=== PATIENT | female | born 1965 | race Two or more races ===

== ENCOUNTER 2018-01-04 14:21 | Emergency (ER) | payer MEDICAID ==
--- NOTE | 2018-01-04 15:11 | ER Document Report ---
ED Medical Screen (RME) - General Chief Complaint: Vaginal Pain Stated Complaint: VAGINAL PAIN/PRESSURE Time Seen by Provider: 01/04/18 15:07 Notes: 60 years old female presents today with sharp vulvovaginal pain since last night. She had on and off pain for several months but this is different which is sharp. It is not associated with any discharges, denies any dysuria frequency urgency. Denies any constipation. Denies any fever chills. Denies any nausea vomiting. Denies any abdominal pain TRAVEL OUTSIDE OF THE [place] IN LAST 30 DAYS: No - Related Data Allergies/Adverse Reactions: cephalexin [From KeMicronotes] Allergy (Verified 01/04/18 14:26) Past Medical History - Social History Chew tobacco use (# tins/day): No Frequency of alcohol use: None Drug Abuse: None Endocrine Medical History: Reports: Hx Diabetes Mellitus Type 2 Renal/ Medical History: Denies: Hx Peritoneal Dialysis Past Surgical History: Reports: Hx Appendectomy, Hx Section - x4 Physical Exam - Vital signs Vitals: Temp Pulse Resp BP Pulse Ox 98.6 F 78 18 167/58 H 95 01/04/18 14:30 01/04/18 14:30 01/04/18 14:30 01/04/18 14:30 01/04/18 14:30 Course - Vital Signs Vital signs: Temp Pulse Resp BP Pulse Ox 98.6 F 78 18 167/58 H 95 01/04/18 14:30 01/04/18 14:30 01/04/18 14:30 01/04/18 14:30 01/04/18 14:30
[2018-01-04 15:50] LABS: APPEARANCE,URINE SLIGHTLY-CLOUDY; BILIRUBIN,URINE NEGATIVE (NEGATIVE); COLOR,URINE STRAW; GLUCOSE, URINE >=500 mg/dL (NEGATIVE); KETONES,URINE NEGATIVE (NEGATIVE); LEUKOCYTE ESTERASE,URINE LARGE (NEGATIVE); NITRITE,URINE NEGATIVE (NEGATIVE); PROTEIN,URINE NEGATIVE (NEGATIVE); UROBILINOGEN,URINE NEGATIVE mg/dL (<2.0)
--- NOTE | 2018-01-04 16:48 | ER Document Report ---
ED GI/ - General Chief Complaint: Vaginal Pain Stated Complaint: VAGINAL PAIN/PRESSURE Time Seen by Provider: 01/04/18 15:07 Mode of Arrival: Ambulatory Information source: Patient Notes: Patient is a 52-year-old female who presents with chief complaint of vaginal pressure. Patient reports that this is usually what happens when she has a urinary tract infection. Patient denies having any dysuria. Denies any abnormal vaginal discharge and denies any vaginal pain. Patient denies any fever or back pain. TRAVEL OUTSIDE OF THE [place] IN LAST 30 DAYS: No - Related Data Allergies/Adverse Reactions: cephalexin [From Keflex] Allergy (Verified 01/04/18 14:26) Past Medical History - General Information source: Patient - Social History Smoking Status: Current Every Day Smoker Chew tobacco use (# tins/day): No Frequency of alcohol use: None Drug Abuse: None Family History: Reviewed & Not Pertinent Patient has suicidal ideation: No Patient has homicidal ideation: No Endocrine Medical History: Reports: Hx Diabetes Mellitus Type 2 Renal/ Medical History: Denies: Hx Peritoneal Dialysis Past Surgical History: Reports: Hx Appendectomy, Hx Section - x4 Review of Systems - Review of Systems Female Genitourinary: Other - Vaginal pressure Physical Exam - Vital signs Vitals: Temp Pulse Resp BP Pulse Ox 98.6 F 78 18 167/58 H 95 01/04/18 14:30 01/04/18 14:30 01/04/18 14:30 01/04/18 14:30 01/04/18 14:30 - Notes Notes: PHYSICAL EXAMINATION: GENERAL: Well-appearing, well-nourished and in no acute distress. HEAD: Atraumatic, normocephalic. EYES: Pupils equal round extraocular movements intact, conjunctiva are normal. ENT: Nares patent NECK: Normal range of motion LUNGS: No respiratory distress Musculoskeletal: Normal range of motion NEUROLOGICAL: Normal speech, normal gait. PSYCH: Normal mood, normal affect. SKIN: Warm, Dry, normal turgor, no rashes or lesions noted. Course - Re-evaluation Re-evalutation: Patient's physical examination is unremarkable, abdomen is soft, nontender no guarding no rebound noted.Urinalysis with large leukocyte Estrace. Patient was placed on antibiotics, urine will be sent for culture. Patient discharged home in stable condition. - Vital Signs Vital signs: Temp Pulse Resp BP Pulse Ox 98.2 F 66 20 147/76 H 97 01/04/18 16:52 01/04/18 16:52 01/04/18 16:52 01/04/18 16:52 01/04/18 16:52 - Laboratory Laboratory results interpreted by me: 01/04/18 15:27 Urine Glucose (UA) >=500 H Ur Leukocyte Esterase LARGE H Discharge - Discharge Clinical Impression: Urinary tract infection Qualifiers: Urinary tract infection type: site unspecified Hematuria presence: without hematuria Qualified Code(s): N39.0 - Urinary tract infection, site not specified Condition: Stable Disposition: HOME, SELF-CARE Additional Instructions: URINARY TRACT INFECTION: Your evaluation indicates that you have a urinary tract infection. This is due to germs growing in the bladder. This is a common problem. This infection usually responds quickly to antibiotics. Your antibiotic should be taken exactly as prescribed. Drink plenty of fluids -- three to four quarts a day. Occasionally, a bladder anesthetic will be prescribed to help stop the feeling of urgency until the antibiotic has a chance to clear the infection. This may cause your urine to be dark orange. Certain urine infections require a culture. If the doctor obtained a culture, the results will be back in two days. You should call to see if a change in treatment is needed. A repeat urinalysis after you finish treatment is often recommended. The physician will let you know if further testing is required. Call the doctor if you develop fever, chills, flank pain, inability to urinate, or blood in the urine. ANTIBIOTIC THERAPY: You have been given an antibiotic prescription. It's important that you take all the medication, unless instructed otherwise by your physician. Failure to complete the entire course can result in relapse of your condition. Common side effects of antibiotics include nausea, intestinal cramping, or diarrhea. Women may develop vaginal yeast infections, and babies can get yeast (thrush) in the mouth following the use of antibiotics. Contact your physician if you develop significant side effects from this medication. Allergy to this antibiotic can result in hives, wheezing, faintness, or itching. If symptoms of allergy occur, stop the medication and call the doctor. TRIMETHOPRIM-SULFA: You have been given a prescription for trimethoprim-sulfa (TMS, Septra, Bactrim). This is a combination antibiotic of the sulfa class, often used for urinary tract infections, middle ear infections, bronchitis, shigella intestinal infection, and Pneumocystis pneumonia. TMS is usually well-tolerated. Occasional side effects include nausea and decreased appetite. Septra is not recommended for infants less than two months of age. Do not take this medication if you have experienced severe side effects or allergy to sulfa medicine. You should stop this medicine at once and contact your physician if you develop any rash, joint pain, shortness of breath, bruising, or jaundice ( yellow color in the skin), or if you develop any other new or unusual symptoms. FOLLOW-UP CARE: If you have been referred to a physician for follow-up care, call the physician s office for an appointment as you were instructed or within the next two days. If you experience worsening or a significant change in your symptoms, notify the physician immediately or return to the Emergency Department at any time for re-evaluation. Take ibuprofen 600 mg every 6 hours for the pain. Take the antibiotic as directed, complete the entire course even if you are feeling better. We will send your urine down for culture, we will call you if there is any abnormality.* Prescriptions: Sulfamethoxazole/Trimethoprim [Bactrim Ds Tablet] 1 tab PO BID #14 tablet Forms: Return to Work
[2018-01-04 16:56] VITALS: BP 147/76
== END 2018-01-04 16:55 | disposition home or self-care (01) ==
LOC: ER 14:21
DX: N39.0 Urinary tract infection, site not specified (principal); R10.2 Pelvic and perineal pain; F17.200 Nicotine dependence, unspecified, uncomplicated; E11.9 Type 2 diabetes mellitus without complications
CPT/HCPCS: 81001; 87086; 99283

== ENCOUNTER 2018-05-23 19:46 | Emergency (ER) | payer SELFPAY ==
[2018-05-23] MEDS ORDERED: CLINDAMYCIN 600 MG/D5W RTU 600 MG/50 ML RTUPB IV ONE (20:35)
--- NOTE | 2018-05-23 20:40 | ER Document Report ---
ED Medical Screen (RME) - General Chief Complaint: Toothache Stated Complaint: FACIAL SWELLING Time Seen by Provider: 05/23/18 20:25 Mode of Arrival: Ambulatory Information source: Patient Notes: 53-year-old female presents the ED for complaint of swelling to her left lower jaw that is actually better today than yesterday but it is still swollen and painful. She states she called for the dentist and has an appointment tomorrow but told her that she needed to come to the emergency room to get antibiotics tonight. She states she also has pain in her lower abdomen worse on the right than on the left but has it on both sides. She states last time she had the same pain she was diagnosed with gallstones. She was told to follow-up with the GI doctor but never followed up. She states that she has a lot of indigestion and upset stomach at night when she eats and is been getting worse over the last several days. She states she is no longer has menstrual periods but is still sexually active. So I have ordered blood urine self swabs and abdominal ultrasound at this time. I have ordered clindamycin IV as I do not want to give her p.o. meds until she has had her workup for her abdominal pain. Patient states she smokes a pack a day and drinks on weekends. I have greeted and performed a rapid initial assessment of this patient. A comprehensive ED assessment and evaluation of the patient, analysis of test results and completion of medical decision making process will be conducted by an additional ED providers. TRAVEL OUTSIDE OF THE [place] IN LAST 30 DAYS: No - Related Data Allergies/Adverse Reactions: cephalexin [From Keflex] Allergy (Verified 01/04/18 14:26) Past Medical History Endocrine Medical History: Reports: Hx Diabetes Mellitus Type 2 Renal/ Medical History: Denies: Hx Peritoneal Dialysis Past Surgical History: Reports: Hx Appendectomy, Hx Section - x4 Physical Exam - Vital signs Vitals: Temp Pulse Resp BP Pulse Ox 98.8 F 95 16 169/73 H 96 05/23/18 19:59 05/23/18 19:59 05/23/18 19:59 05/23/18 19:59 05/23/18 19:59 Course - Vital Signs Vital signs: Temp Pulse Resp BP Pulse Ox 98.8 F 95 16 169/73 H 96 05/23/18 19:59 05/23/18 19:59 05/23/18 19:59 05/23/18 19:59 05/23/18 19:59
[2018-05-23] MEDS ORDERED: KETOROLAC TROMETHAMINE INJ/PF 30 MG/1 ML SDV IV ONE (21:00)
[2018-05-23 21:03] LABS: ABSOLUTE BASOPHILS # (AUTO) 0.2 10^3/uL (0.0-0.2); ABSOLUTE EOSINOPHILS # (AUTO) 0.1 10^3/uL (0.0-0.6); ABSOLUTE LYMPHOCYTES (AUTO) 2.9 10^3/uL (0.5-4.7); ABSOLUTE MONOCYTES (AUTO) 0.9 10^3/uL (0.1-1.4); ABSOLUTE NEUT (AUTO) 9.2 10^3/uL (1.7-8.2); BASOPHILS % (AUTO) 1.3 % (0-2); EOSINOPHILS % (AUTO) 0.9 % (0-6); HEMATOCRIT 47.5 % (36.0-47.0); LYMPHOCYTES % (AUTO) 21.9 % (13-45); MEAN CORPUSCULAR HGB CONC 33.6 g/dL (32.0-36.0); MEAN CORPUSCULAR VOLUME 92 fl (80-97); MONOCYTES % (AUTO) 6.6 % (3-13); PLATELET COUNT 263 10^3/uL (150-450); RED BLOOD COUNT 5.15 10^6/uL (3.72-5.28); RED CELL DISTRIBUTION WIDTH 13.5 % (11.5-14.0); SEGMENTED NEUTROPHILS % (AUTO) 69.3 % (42-78); TOTAL CELLS COUNTED % (AUTO) 100 %; WHITE BLOOD COUNT 13.2 10^3/uL (4.0-10.5)
[2018-05-23 21:07] LABS: BACTERIA (WET MOUNT) 4+ BACTERIA SEEN; T.VAGINALIS (WET MOUNT) TRICHOMONAS SEEN; WBCS (WET MOUNT) 4+ WBCS SEEN; YEAST (WET MOUNT) NO YEAST SEEN
[2018-05-23 21:15] LABS: APPEARANCE,URINE SLIGHTLY-CLOUDY; BILIRUBIN,URINE NEGATIVE (NEGATIVE); COLOR,URINE STRAW; GLUCOSE, URINE >=500 mg/dL (NEGATIVE); KETONES,URINE NEGATIVE (NEGATIVE); LEUKOCYTE ESTERASE,URINE MODERATE (NEGATIVE); NITRITE,URINE NEGATIVE (NEGATIVE); PROTEIN,URINE NEGATIVE (NEGATIVE); URINE SPECIFIC GRAVITY 1.031; UROBILINOGEN,URINE NEGATIVE mg/dL (<2.0)
[2018-05-23 21:24] LABS: ALANINE AMINOTRANSFERASE 27 U/L (9-52); ALBUMIN 3.9 g/dL (3.5-5.0); ALKALINE PHOSPHATASE 176 U/L (38-126); ANION GAP 8 (5-19); ASPARTATE AMINO TRANSFERASE 28 U/L (14-36); BILIRUBIN,DIRECT 0.4 mg/dL (0.0-0.4); BILIRUBIN,TOTAL 0.6 mg/dL (0.2-1.3); BLOOD UREA NITROGEN 20 mg/dL (7-20); CALCIUM 8.9 mg/dL (8.4-10.2); CARBON DIOXIDE 25 mmol/L (22-30); CHLORIDE 100 mmol/L (98-107); LIPASE 73.7 U/L (23-300); SODIUM 133.1 mmol/L (137-145); TOTAL PROTEIN 7.4 g/dL (6.3-8.2)
[2018-05-23 21:35] LABS: GLUCOSE 578 mg/dL (75-110)
--- NOTE | 2018-05-23 22:29 | RADIOLOGY REPORT (SQ) ---
EXAM DESCRIPTION: U/S ABDOMEN LTD W/DOPPLER CLINICAL HISTORY: 53 years Female; hx gallstone with same symptoms TECHNIQUE: Right upper quadrant ultrasound was performed. COMPARISON: None. FINDINGS: Pancreas: Visualized portions are unremarkable. Aorta: 2.4 cm. Liver: 20.2 cm long, with somewhat echogenic parenchyma. No ductal distention. Portal venous flow is hepatopedal, normal. Gallbladder: Multiple shadowing calculi. Negative Mosquera sign. Wall is 3 mm. Common bile duct: 3 mm. Right kidney: 11.9 cm long. No definite hydronephrosis. There is a cystic area in the lower pole 10 mm, likely parapelvic cyst. IMPRESSION: 1. Cholelithiasis. No sonographic evidence for acute cholecystitis. 2. Hepatomegaly with hepatic steatosis. 3. No biliary ductal distention.
[2018-05-23 22:31] LABS: CHLAM PCR NOT DETECTED (NOT DETECT); GON PCR NOT DETECTED (NOT DETECT)
--- NOTE | 2018-05-23 22:34 | RADIOLOGY REPORT (SQ) ---
EXAM DESCRIPTION: US PELVIS COMPLETED DATE/TME: 05/23/2018 20:41 CLINICAL HISTORY: 53 years, Female, pelvic pain COMPARISON: None. TECHNIQUE: Transverse and longitudinal transabdominal sonographic images of the pelvis LIMITATIONS: None. FINDINGS: The uterus measures 7.4 x 5.0 x 4.4 cm. The myometrium is homogenous. The endometrium measures 6.2 mm in thickness. The right ovary measures 2 x 1 x 1 cm, the left 2 x 2 x 2 cm. No adnexal cyst or mass. Normal flow to each ovary. No free fluid IMPRESSION: Endometrium measures 6.2 mm in thickness, considered mildly thickened in a postmenopausal patient. Otherwise unremarkable exam copyright 2010 [employer]- All Rights Reserved
[2018-05-23] MEDS ORDERED: INSULIN REG, HUMAN 100 UNIT/ML 3 ML VIAL (PYX) IV ONE (23:04)
[2018-05-23] MEDS: NORMAL SALINE 1000 ML 1,000 ML IV PRN (23:29)
[2018-05-23] MEDS ORDERED: METRONIDAZOLE 500 MG TABLET PO ONE (23:53)
--- NOTE | 2018-05-23 23:59 | ER Document Report ---
Addendum entered and electronically signed by SABINA FARMER PA-C 05/24/18 02:07: Physical Exam - Vital signs Vitals: Temp Pulse Resp BP Pulse Ox 98.8 F 95 16 169/73 H 96 05/23/18 19:59 05/23/18 19:59 05/23/18 19:59 05/23/18 19:59 05/23/18 19:59 - Notes Notes: Genitourinary exam chaperoned by Darby SAGASTUME. External genitalia normal. Speculum exam reveals copious greenish yellow vaginal discharge. There is no cervical motion tenderness. No adnexal masses or tenderness appreciated. Original Note: ED General - General Chief Complaint: Toothache Stated Complaint: FACIAL SWELLING Time Seen by Provider: 05/23/18 20:25 Mode of Arrival: Ambulatory Information source: Patient TRAVEL OUTSIDE OF THE [place] IN LAST 30 DAYS: No - HPI Patient complains to provider of: Left lower jaw dental abscess, pelvic pain Onset: Other - Dental abscess during the past week, pelvic pain and pelvic discomfort for weeks to months Onset/Duration: Gradual Quality of pain: Burning, Cramping Severity: Severe Pain Level: 4 Associated symptoms: denies: Chills, Fever Exacerbated by: Denies Relieved by: Denies Similar symptoms previously: No Recently seen / treated by doctor: No Notes: 53-year-old female coming in today for treatment of a left lower jaw swelling secondary to bad teeth. She called the dentist today and they told her to come here to get started on some strong antibiotics. While she was here she wanted us to evaluate her lower abdominal pain she has had intermittently for the past several weeks to months. - Related Data Allergies/Adverse Reactions: cephalexin [From Keflex] Allergy (Verified 01/04/18 14:26) Past Medical History - General Information source: Patient - Social History Smoking Status: Current Every Day Smoker Frequency of alcohol use: Social Drug Abuse: None Family History: Reviewed & Not Pertinent Patient has suicidal ideation: No Patient has homicidal ideation: No Endocrine Medical History: Reports: Hx Diabetes Mellitus Type 2 Renal/ Medical History: Denies: Hx Peritoneal Dialysis Past Surgical History: Reports: Hx Appendectomy, Hx Section - x4 Review of Systems - Review of Systems Notes: Constitutional: No fevers. No chills. EENT: No eye redness. No eye pain. No ear pain. No sore throat. Positive for dental pain and facial swelling Cardiovascular: No chest pain. No palpitations. Respiratory: No cough. No shortness of breath. No respiratory distress. Gastrointestinal: No abdominal pain. No nausea, vomiting, or diarrhea. Genitourinary: Atraumatic. No lesions. No pain. No discharge. Positive for pelvic pain Musculoskeletal: Atraumatic. No swelling. No deformities. Skin: No rash or lesions. Lymphatic: No swollen lymph nodes. Neurologic: No headache. No syncope. Psychiatric: No suicidal or homicidal ideation. Physical Exam - Vital signs Vitals: Temp Pulse Resp BP Pulse Ox 98.8 F 95 16 169/73 H 96 05/23/18 19:59 05/23/18 19:59 05/23/18 19:59 05/23/18 19:59 05/23/18 19:59 - Notes Notes: General: Well-developed, well-nourished. In no acute distress. Non-toxic appearing. Cardiac: Well-perfused. Regular rate and rhythm. No murmurs, rubs, or gallops. Pulmonary: No respiratory distress. No cyanosis. Bilateral lung fiels are clear to auscultation. Abdominal: Non-distended. Non-rigid. Bowels sounds are present in all four quadrants. No guarding or rebound. HEENT: Head is atraumatic. Conjunctivae not reddened. No tearing. PERRL. EOMI. Orbits atraumatic. No periorbital swelling or erythema. Oropharynx is without erythema, swelling, or exudates. Neck: Supple. No adenopathy. No meningismus. Dermatologic: Warm with good turgor. No rash. Atraumatic. Chest: Atraumatic. No chest wall tenderness to palpation. Musculoskeletal: Moves all extremities well. No range of motion deficits. no muscular or joint tenderness. No paraspinal muscle tenderness. no midline spinal tenderness or step-off. Genitourinary: Examination deferred Neurologic: No gross neurologic deficits. Psychiatric: Normal mood. Course - Re-evaluation Re-evalutation: 05/23/18 23:59 Patient has a history of type 2 diabetes but is apparently been hoping and praying that it would stay controlled despite having a bad diet and not taking any medications. There is no signs of any ketoacidosis on her lab work. Patient also comes in with a slightly low sodium and a positive trichomonas test. Her chlamydia and gonorrhea tests were negative. I do want to do a pelvic exam to make sure she did not have any PID. Sh we will give her e does not have an appendix secondary to appendectomy. Her pelvic ultrasound does not show any signs of torsion. Her gallbladder ultrasound showed cholelithiasis without cholecystitis. I am going to go ahead and treat her trichomoniasis with Flagyl tonight. She is getting 2 L of normal saline and 10 units of regular insulin hoping to get her blood sugar down. When she goes home she will be treated with Metformin 500 twice daily we will give her [facility] as follow-up. She has a severe amount of cervical motion tenderness we will consider adding some treatment for PID as well. 05/24/18 01:25 At last check glucose was down to 278. Patient's pelvic exam did not reveal any cervical motion tenderness and therefore patient was not to be treated for pelvic inflammatory disease. Trichomonas is addressed today with 2 g of p.o. Flagyl. We will start the patient on Metformin 500 mg twice daily and refer her to [facility] for that. I will give her prescription for the clindamycin for her to and she can follow-up with the appropriate dentist for that. We will give her some smoking education as this is definitely not helping her situation. - Vital Signs Vital signs: Temp Pulse Resp BP Pulse Ox 98.8 F 95 16 169/73 H 96 05/23/18 19:59 05/23/18 19:59 05/23/18 19:59 05/23/18 19:59 05/23/18 19:59 - Laboratory Result Diagrams: 05/23/18 20:40 05/23/18 20:40 Laboratory results interpreted by me: 05/23/18 05/23/18 05/23/18 20:40 20:40 20:40 WBC 13.2 H Hgb 16.0 H Hct 47.5 H Absolute Neutrophils 9.2 H Sodium 133.1 L Est GFR ( Amer) 59 L Est GFR (Non-Af Amer) 49 L Glucose 578 H* POC Glucose Alkaline Phosphatase 176 H Urine Glucose (UA) >=500 H Ur Leukocyte Esterase MODERATE H 05/24/18 00:58 WBC Hgb Hct Absolute Neutrophils Sodium Est GFR ( Amer) Est GFR (Non-Af Amer) Glucose POC Glucose 278 H Alkaline Phosphatase Urine Glucose (UA) Ur Leukocyte Esterase Discharge - Discharge Clinical Impression: Dental abscess, Hyperglycemia, Hyponatremia, Trichomoniasis, Pelvic pain, Elevated blood pressure reading Condition: Good Instructions: [facility], Clindamycin ([facility]), Toothache ([facility]), Abscess ([facility]) Additional Instructions: Trichomonas Infection Trichomoniasis is infection of the vagina or male genital tract with Trichomonas vaginalis. It can be asymptomatic or cause urethritis, vaginitis, or occasionally cystitis, epididymitis, or prostatitis. Diagnosis is by microscopic examination of vaginal or prostatic secretions or by urethral culture. Patients and sex partners are treated with metronidazole. T. vaginalis is a flagellated, sexually transmitted protozoan that more often infects women (about 20% of women of reproductive age) than men. Infection may be asymptomatic in either sex, but asymptomatic is the rule for men. In men, protozoa may persist for long periods in the tract without causing symptoms; thus, protozoa may be transmitted unwittingly to sex partners. Trichomoniasis may account for up to 5% of nongonococcal, nonchlamydial urethritis in men in some areas. Co-infection with gonorrhea and other sexually transmitted diseases (STDs) is common. In women, symptoms range from none to copious, yellow-green, frothy vaginal discharge with soreness of the vulva and perineum, dyspareunia, and dysuria. Asymptomatic infection may become symptomatic at any time as the vulva and perineum become inflamed and edema develops in the labia. The vaginal carpio and surface of the cervix may have punctate, red "strawberry" spots. Urethritis and possibly cystitis may also occur. Men are usually asymptomatic; however, sometimes urethritis results in a discharge that may be transient, frothy, or purulent or that causes dysuria and frequency, usually early in the morning. Often, urethritis is mild and causes only minimal urethral irritation and occasional moisture at the urethral meatus, under the foreskin, or both. Epididymitis and prostatitis are rare complications. Trichomoniasis is suspected in women with vaginitis, in men with urethritis, and in their sex partners. Suspicion is high if symptoms persist after patients have been evaluated and treated for other infections such as gonorrhea and chlamydial, mycoplasmal, and ureaplasmal infections. In women, diagnosis is based on clinical criteria and in-office testing. The saline wet mount is examined microscopically as soon as possible to detect trichomonads.In men, microscopy of urine is insensitive, although occasionally organisms are visible in a first-voided morning specimen or a centrifuged specimen. Cultures of urine and urethral swabs are more sensitive. As with diagnosis of any STD, patients with trichomoniasis should be tested to exclude other common STDs such as gonorrhea and chlamydial infection. Metronidazole or tinidazole 2 g po in a single dose cures up to 95% of women if sex partners are treated simultaneously. Effectiveness of single-dose regimens in men is not as clear, so treatment is typically with metronidazole or tinidazole 500 mg bid for 5 to 7 days. Sex partners should be screened and treated for trichomoniasis and other STDs. If poor adherence to follow-up is likely, treatment can be initiated in sex partners of patients with documented trichomoniasis without confirming the diagnosis in the partner. Diabetes You have an abnormally high blood sugar, suspicious for diabetes. Not all high blood sugar requires long-term treatment. High blood sugar can be due to medications, , or the stress of illness. (These cases are "borderline diabetes.") If the doctor feels your high blood sugar might get better with time, you may not require treatment now. You will be scheduled for further evaluation. It's very important that you follow through. Uncontrolled high blood sugar leads to early heart disease, strokes, nerve damage, eye damage, and kidney damage. All diabetics should follow a diet designed to control the blood sugar. Overweight diabetics should exercise regularly and lose weight. If this is not sufficient to control the blood sugar, pills or insulin shots are necessary. Younger people who develop diabetes almost always require insulin daily. Home testing of blood sugars or urine sugar is required. Diabetic teaching is available to help you figure insulin doses and monitor the blood sugar. Call the physician if there is faintness, excess sleepiness, or very rapid breathing. If hypoglycemia (LOW blood sugar) develops, symptoms are shakiness, weakness, sweating, and confusion. In this case, you should eat or drink something with sugar at once. Prescriptions: Tramadol HCl [Ultram] 50 mg PO Q4HP PRN #15 tablet PRN Reason: Clindamycin HCl 300 mg PO QID #40 capsule Metformin HCl [Glucophage 500 mg Tablet] 500 mg PO BID #60 tablet Forms: Smoking Cessation Education, Elevated Blood Pressure Referrals: [facility] [Provider Group] - Follow up tomorrow [facility] [Provider Group] - Follow up tomorrow Print Language: Chinese
[2018-05-24] MEDS: NORMAL SALINE 1000 ML 1,000 ML IV PRN (01:08)
[2018-05-24 01:59] VITALS: BP 146/69
== END 2018-05-24 02:00 | disposition home or self-care (01) ==
LOC: ER 19:46
DX: K04.7 Periapical abscess without sinus (principal); A59.9 Trichomoniasis, unspecified; E11.65 Type 2 diabetes mellitus with hyperglycemia; E87.1 Hypo-osmolality and hyponatremia; K80.20 Calculus of gallbladder without cholecystitis without obstruction; R10.2 Pelvic and perineal pain; R03.0 Elevated blood-pressure reading, without diagnosis of hypertension; F17.200 Nicotine dependence, unspecified, uncomplicated; Z88.1 Allergy status to other antibiotic agents
CPT/HCPCS: 99284; 96361; 96375; 96365; 96366; 36415; 87086; 87210; 82962; 83690; 84703; 85025; 87088; 80053; 81001; 87186; 87491; 87591; 76856; 76705; 93976; J1885; J1815; J7030 ×2

== ENCOUNTER → 2019-01-15 | Outpatient (CLI) | payer OTHER ==
[2019-01-15 14:44] LABS: APPEARANCE,URINE CLOUDY; BILIRUBIN,URINE NEGATIVE (NEGATIVE); COLOR,URINE YELLOW; GLUCOSE, URINE >=500 mg/dL (NEGATIVE); KETONES,URINE NEGATIVE (NEGATIVE); LEUKOCYTE ESTERASE,URINE LARGE (NEGATIVE); NITRITE,URINE POSITIVE (NEGATIVE); PROTEIN,URINE 30 mg/dL (NEGATIVE); URINE SPECIFIC GRAVITY 1.025; UROBILINOGEN,URINE NEGATIVE mg/dL (<2.0)
[2019-01-15 14:56] LABS: ALBUMIN 4.4 g/dL (3.5-5.0); ALKALINE PHOSPHATASE 112 U/L (38-126); ANION GAP 9 (5-19); ASPARTATE AMINO TRANSFERASE 16 U/L (14-36); BILIRUBIN,DIRECT 0.1 mg/dL (0.0-0.4); BILIRUBIN,TOTAL 0.5 mg/dL (0.2-1.3); BLOOD UREA NITROGEN 17 mg/dL (7-20); CALCIUM 9.4 mg/dL (8.4-10.2); CARBON DIOXIDE 27 mmol/L (22-30); CHLORIDE 103 mmol/L (98-107); CHOLESTEROL 281.94 mg/dL (0-200); GLUCOSE 214 mg/dL (75-110); POTASSIUM 4.5 mmol/L (3.6-5.0); TOTAL PROTEIN 7.8 g/dL (6.3-8.2); TRIGLYCERIDES 523 mg/dL (<150)
[2019-01-15 15:07] LABS: DIRECT LDL 146 mg/dL (<100)
== END ==
LOC: CCC 12:14
DX: E11.8 Type 2 diabetes mellitus with unspecified complications (principal); I10 Essential (primary) hypertension; M19.90 Unspecified osteoarthritis, unspecified site
CPT/HCPCS: 36415; 80053; 80061; 81001; 83036; 84443

== ENCOUNTER 2019-01-31 13:00 | Emergency (ER) | payer SELFPAY ==
[2019-01-31 13:05] VITALS: BP 148/80
[2019-01-31] MEDS ORDERED: KETOROLAC TROMETHAMINE 60 MG/2 ML SDV IM ONE (13:46)
--- NOTE | 2019-01-31 13:51 | ER Document Report ---
HPI - HPI Time Seen by Provider: 01/31/19 13:37 Pain Level: 3 Notes: Patient is a 54-year-old female who presents complaining of soreness to her right anterior wrist area and decreased strength to her fingers and movement to her fourth and fifth fingers over the past 2 months. Patient has been evaluated by her family doctor for this and told her that she may need an EMG study done and have been in the process of doing that. She has not had any injury or obvious swelling/bruising that she has noted. Patient is a diabetic otherwise with history of hypertension as well. Denies any headache, fever, neck pain, URI, sore throat, chest pain, palpitations, syncope, cough, shortness of breath, wheeze, dyspnea, abdominal pain, nausea/vomiting/diarrhea, urinary retention, dysuria, hematuria, loss of control of bowel or bladder, numbness/tingling, saddle anesthesia, muscle paralysis, or rash. - ROS Systems Reviewed and Negative: Yes All other systems reviewed and negative - REPRODUCTIVE Reproductive: DENIES: : Past Medical History - Social History Smoking Status: Current Every Day Smoker Chew tobacco use (# tins/day): No Frequency of alcohol use: None Drug Abuse: None Family History: Reviewed & Not Pertinent Patient has suicidal ideation: No Patient has homicidal ideation: No Endocrine Medical History: Reports: Hx Diabetes Mellitus Type 2 Renal/ Medical History: Denies: Hx Peritoneal Dialysis Past Surgical History: Reports: Hx Appendectomy, Hx Section - x4 Vertical Provider Document - CONSTITUTIONAL Agree With Documented VS: Yes Notes: PHYSICAL EXAMINATION: GENERAL: Well-appearing, well-nourished and in no acute distress. HEAD: Atraumatic, normocephalic. NECK: Normal range of motion, supple without lymphadenopathy. No midline tenderness. LUNGS: Breath sounds clear to auscultation bilaterally and equal. No wheezes rales or rhonchi. HEART: Regular rate and rhythm without murmurs, rubs, gallops. Musculoskeletal: Rt hand/wrist: No erythema, warmth, ecchymosis, deformity, or swelling noted. N/V intact distal. FROM to passive/active at the wrist and 1st-3rd digits. LROM to flexion to active at the 4-5th. Pt can hold in flexion if passively flexed then let go. Strength 3-4+/5 to teletray operator. No scaphoid tenderness. Neg Viviana. Tinel/phalen neg. No other bony tenderness. Gamekeeper negative. Extremities: No cyanosis, clubbing, or edema b/l. Peripheral pulses 2+. Capillary refill less than 3 seconds. NEUROLOGICAL: Normal speech, normal gait. Normal sensory, motor exams otherwise unremarkable PSYCH: Normal mood, normal affect. SKIN: see above. No rash - INFECTION CONTROL TRAVEL OUTSIDE OF THE [place] IN LAST 30 DAYS: No Course - Re-evaluation Re-evalutation: 01/31/19 13:[address] Sloan who agrees with dispo/plan: Patient is an afebrile, well-hydrated, 55-year-old female who presents to the ED with left ankle pain which I suspect to be a sprain versus strain. Vitals are acceptable without any significant tachycardia, tachypnea, or hypoxia. PE is otherwise unremarkable for any obvious tendon/ligament rupture, obvious fracture/dislocation, septic joint. Cock up splint provided today. Toradol given IM. Patient is nontoxic-appearing. No other labs or imaging warranted at this time based on H&P. We do suspect patient will need an EMG to further evaluate. Conservative measures otherwise for symptoms. Recheck with your PCM in 3-5 days. Schedule consult with orthopedics. Return to the ED with any worsening/concerning symptoms otherwise as reviewed in discharge. Patient is in agreement. - Vital Signs Vital signs: Temp Pulse Resp BP Pulse Ox 97.4 F 75 14 148/80 H 98 01/31/19 13:28 01/31/19 13:03 01/31/19 13:28 01/31/19 13:03 01/31/19 13:28 Discharge - Discharge Clinical Impression: Right wrist pain Condition: Stable Disposition: HOME, SELF-CARE Additional Instructions: Scheduled appointment with your family provider to discuss having an EMG performed. Rest, Ice, Compression, Elevation Tylenol/ibuprofen as needed Light stretches daily Strength exercises as able Moist heat and massage may help F/u with your PCP in 3-5 days for a recheck Schedule consult(s) with Orthopedics/physical therapy for ongoing/worsening symptoms Return to the ED with any worsening symptoms and/or development of fever, headache, chest pain, palpitations, syncope, shortness of breath, trouble breathing, abdominal pain, n/v/d, muscle weakness/paralysis, numbness/tingling, swelling, redness, or other worsening symptoms that are concerning to you. Forms: Elevated Blood Pressure Referrals: [facility] [Primary Care Provider] - Follow up as needed [facility] [Provider Group] - Follow up as needed
== END 2019-01-31 15:08 | disposition home or self-care (01) ==
LOC: ER 13:00
DX: M25.531 Pain in right wrist (principal); M25.572 Pain in left ankle and joints of left foot; E11.9 Type 2 diabetes mellitus without complications; I10 Essential (primary) hypertension; F17.200 Nicotine dependence, unspecified, uncomplicated
CPT/HCPCS: L3908; J1885; 96372; 99283

== ENCOUNTER 2019-05-19 14:43 | Inpatient (IN) | payer SELFPAY ==
[2019-05-19] MEDS ORDERED: HYDROCODONE/ACETAMINOPHEN 5-325 MG TABLET PO ONE (14:55)
--- NOTE | 2019-05-19 14:57 | ER Document Report ---
ED Medical Screen (RME) - General Chief Complaint: Leg Pain Stated Complaint: LEG PAIN Time Seen by Provider: 05/19/19 14:54 TRAVEL OUTSIDE OF THE [place] IN LAST 30 DAYS: No - HPI Notes: 05/19/19 14:55 54-year-old female presents emergency room for complaints of a hard mass to left groin/ rectal region for the past 4 days. Has tried warm compresses. States pain is 4 out of 5, throbbing and sharp. States bump has become much worse with time. No prior history of MRSA. Denies any chest pain shortness of breath fevers or chills. I have greeted and performed a rapid initial assessment of this patient. A comprehensive ED assessment and evaluation of the patient, analysis of test results and completion of the medical decision making process will be conducted by additional ED providers. PHYSICAL EXAMINATION: GENERAL: Well-appearing, well-nourished and in no acute distress. SKIN: Warm, Dry, normal turgor, no rashes or lesions noted. Induration, erythema warmth to touch proximately 5 cm x 5 cm to left lower buttock groin area with surrounding erythema - Related Data Allergies/Adverse Reactions: cephalexin [From Keflex] Allergy (Verified 05/19/19 14:49) Past Medical History - Social History Chew tobacco use (# tins/day): No Frequency of alcohol use: None Drug Abuse: Bath salts Endocrine Medical History: Reports: Hx Diabetes Mellitus Type 2 Renal/ Medical History: Denies: Hx Peritoneal Dialysis Past Surgical History: Reports: Hx Appendectomy, Hx Section - x4 Physical Exam - Vital signs Vitals: Temp Pulse Resp BP Pulse Ox 98.1 F 103 H 18 171/94 H 96 05/19/19 14:46 05/19/19 14:46 05/19/19 14:46 05/19/19 14:46 05/19/19 14:46 Course - Vital Signs Vital signs: Temp Pulse Resp BP Pulse Ox 98.1 F 103 H 18 171/94 H 96 05/19/19 14:46 05/19/19 14:46 05/19/19 14:46 05/19/19 14:46 05/19/19 14:46
[2019-05-19 15:39] LABS: ABSOLUTE BASOPHILS # (AUTO) 0.2 10^3/uL (0.0-0.2); ABSOLUTE EOSINOPHILS # (AUTO) 0.3 10^3/uL (0.0-0.6); ABSOLUTE LYMPHOCYTES (AUTO) 3.2 10^3/uL (0.5-4.7); ABSOLUTE NEUT (AUTO) 10.3 10^3/uL (1.7-8.2); BASOPHILS % (AUTO) 1.2 % (0-2); EOSINOPHILS % (AUTO) 1.7 % (0-6); HEMATOCRIT 43.9 % (36.0-47.0); HEMOGLOBIN 15.1 g/dL (12.0-15.5); LYMPHOCYTES % (AUTO) 21.7 % (13-45); MEAN CORPUSCULAR HEMOGLOBIN 30.2 pg (27.0-33.4); MEAN CORPUSCULAR HGB CONC 34.3 g/dL (32.0-36.0); MEAN CORPUSCULAR VOLUME 88 fl (80-97); MONOCYTES % (AUTO) 6.5 % (3-13); PLATELET COUNT 310 10^3/uL (150-450); RED BLOOD COUNT 4.99 10^6/uL (3.72-5.28); RED CELL DISTRIBUTION WIDTH 13.6 % (11.5-14.0); SEGMENTED NEUTROPHILS % (AUTO) 68.9 % (42-78); TOTAL CELLS COUNTED % (AUTO) 100 %; WHITE BLOOD COUNT 14.9 10^3/uL (4.0-10.5)
[2019-05-19 16:00] LABS: ALKALINE PHOSPHATASE 142 U/L (38-126); ANION GAP 11 (5-19); ASPARTATE AMINO TRANSFERASE 16 U/L (14-36); BILIRUBIN,DIRECT 0.3 mg/dL (0.0-0.4); BILIRUBIN,TOTAL 0.5 mg/dL (0.2-1.3); BLOOD UREA NITROGEN 18 mg/dL (7-20); CARBON DIOXIDE 21 mmol/L (22-30); CHLORIDE 103 mmol/L (98-107); GLUCOSE 288 mg/dL (75-110); POTASSIUM 4.3 mmol/L (3.6-5.0); TOTAL PROTEIN 7.8 g/dL (6.3-8.2)
[2019-05-19] MEDS ORDERED: CLINDAMYCIN 600 MG/D5W RTU 600 MG/50 ML RTUPB IV ONE (16:16)
--- NOTE | 2019-05-19 17:29 | ER Document Report ---
Entered by LAURA BURGESS SCRIBE 05/19/19 1554 Acting as scribe for:MARLEE ARORA MD ED General - General Chief Complaint: Abscess Stated Complaint: LEG PAIN Time Seen by Provider: 05/19/19 14:54 Mode of Arrival: Ambulatory Information source: Patient Notes: This 34-year-old female patient presents to the emergency department today with what she thinks is an abscess to her inner left thigh. Patient states that she first noticed this 4 days ago. Patient states this area was initially on her right inner thigh, stating that she put warm compresses on this and it seemed to go down and her pain went away. Patient states that later that same night she noticed a similar area on her left inner thigh as well. Patient states she tried the same warm compresses on the left side but it did not reduce the swelling or pain. Patient mentions that she has had similar skin infections that have had to be drained in [place], [place] where she used to live. Last meal was 10:30 AM this morning where she had some chicken. TRAVEL OUTSIDE OF THE [place] IN LAST 30 DAYS: No - Related Data Allergies/Adverse Reactions: cephalexin [From Keflex] Allergy (Verified 05/19/19 14:49) Past Medical History - General Information source: Patient - Social History Smoking Status: Current Every Day Smoker Cigarette use (# per day): Yes Chew tobacco use (# tins/day): No Frequency of alcohol use: None Drug Abuse: None Family History: Reviewed & Not Pertinent Patient has suicidal ideation: No Patient has homicidal ideation: No - Past Medical History Cardiac Medical History: Reports: Hx Hypertension Endocrine Medical History: Reports: Hx Diabetes Mellitus Type 2 Past Surgical History: Reports: Hx Appendectomy, Hx Section - x4, Other - reports a dermatologic excision of a cystic structure on back Review of Systems - Review of Systems Constitutional: No symptoms reported EENT: No symptoms reported Cardiovascular: No symptoms reported Respiratory: No symptoms reported Gastrointestinal: No symptoms reported Genitourinary: No symptoms reported Female Genitourinary: No symptoms reported Musculoskeletal: No symptoms reported Skin: See HPI, Lesions, Rash Hematologic/Lymphatic: No symptoms reported Neurological/Psychological: No symptoms reported -: Yes All other systems reviewed and negative Physical Exam - Vital signs Vitals: Temp Pulse Resp BP Pulse Ox 98.1 F 103 H 18 171/94 H 96 03/29/20 14:46 05/19/19 14:46 05/19/19 14:46 05/19/19 14:46 05/19/19 14:46 - Notes Notes: Physical Exam: General: Alert, appears well. HEENT: Normocephalic. Atraumatic. PERRLA. Extraocular movements intact. Oropharynx clear. Neck: Supple. Respiratory: No respiratory distress. Abdominal: Normal Inspection. No distension. Extremities: Moves all four extremities. Neurological: Normal cognition. AAOx4. Normal speech. Psychological: Normal affect. Normal Mood. Skin: The right proximal posterior medial aspect of the thigh has a firm cystic mass that is a little tender with out erythema. It may be fluctuant. The left perineal region has a large red swollen fluctuant area extending toward the anus. Course - Vital Signs Vital signs: Temp Pulse Resp BP Pulse Ox 98.6 F 88 18 152/89 H 92 05/19/19 17:29 05/19/19 17:29 05/19/19 17:29 05/19/19 17:29 05/19/19 17:29 - Laboratory Result Diagrams: 05/19/19 15:28 05/19/19 15:28 Laboratory results interpreted by me: 05/19/19 05/19/19 05/19/19 15:28 15:28 15:28 WBC 14.9 H Absolute Neuts (auto) 10.3 H Sodium 135.1 L Carbon Dioxide 21 L Glucose 288 H Hemoglobin A1c % 11.1 H Alkaline Phosphatase 142 H - Consults Dr. Dominguez Consulted provider: will come to ER Discharge - Discharge Clinical Impression: Abscess of deep perineal space, Poorly controlled diabetes mellitus Leukocytosis Qualifiers: Leukocytosis type: unspecified Qualified Code(s): D72.829 - Elevated white blood cell count, unspecified Condition: Stable Disposition: ADMITTED INPATIENT Admitting Provider: Surgicalist Unit Admitted: OR I personally performed the services described in the documentation, reviewed and edited the documentation which was dictated to the scribe in my presence, and it accurately records my words and actions.
[2019-05-19] MEDS ORDERED: MIDAZOLAM 2 MG/2 ML INJ ONE (17:38)
[2019-05-19] MEDS ORDERED: FENTANYL CITRATE INJ/PF 100 MCG/2 ML AMPUL ONE (17:38)
[2019-05-19] MEDS ORDERED: FENTANYL CITRATE INJ/PF 100 MCG/2 ML AMPUL IV PRN ×3 (17:44)
[2019-05-19] MEDS ORDERED: PROMETHAZINE HCL INJ 25 MG/1 ML VIAL IV PRN (17:44)
[2019-05-19] MEDS ORDERED: LIDOCAINE 0.5% INJ-PF (5 MG/ML) 50 ML SDV ONE (18:11)
--- NOTE | 2019-05-19 18:42 | PDOC H&P ---
History of Present Illness Admission Date/PCP: 05/19/19 17:40 Patient complains of: Abscesses inner thighs History of Present Illness: MARK ANTHONY MENEZES is a 54 year old female Presents emergency department with several history of inner thigh abscesses left greater than right, pain, swelling but no drainage. She has a history of abscess drainage in [place] many years ago. She was seen in the emergency department where she is found to have bilateral inner thigh abscesses left greater than right, leukocytosis. Surgery was consulted, examined in the e mergency department, and felt to require operative drainage. Past Medical History Past Medical History: Obesity, smoking abuse, diabetes mellitus poorly controlled Cardiac Medical History: Reports: Hypertension Endocrine Medical History: Reports: Diabetes Mellitus Type 2 Past Surgical History Past Surgical History: Reports: None, Appendectomy, Section - x4, Other - reports a dermatologic excision of a cystic structure on back Social History Information Source: Patient Smoking Status: Current Every Day Smoker Electronic Cigarette use?: No Family History Family History: None, Reviewed & Not Pertinent Parental Family History Reviewed: No Children Family History Reviewed: No Sibling(s) Family History Reviewed.: No Medication/Allergy Home Medications: Sulfamethoxazole/Trimethoprim [Bactrim Ds Tablet] 1 tab PO BID #14 tablet 01/04/18 Clindamycin HCl 300 mg PO QID #40 capsule 05/24/18 Metformin HCl [Glucophage 500 mg Tablet] 500 mg PO BID #60 tablet 05/24/18 Tramadol HCl [Ultram] 50 mg PO Q4HP PRN #15 tablet 05/24/18 Allergies/Adverse Reactions: cephalexin [From Keflex] Allergy (Verified 05/19/19 14:49) Review of Systems Constitutional: PRESENT: as per HPI - No acute distress Eyes: ABSENT: visual disturbances Ears: ABSENT: hearing changes Cardiovascular: ABSENT: chest pain, dyspnea on exertion, edema, orthropnea, palpitations Respiratory: ABSENT: cough, hemoptysis Gastrointestinal: ABSENT: abdominal pain, constipation, diarrhea, hematemesis, hematochezia, nausea, vomiting Genitourinary: ABSENT: dysuria, hematuria Neurological: PRESENT: as per HPI Endocrine: ABSENT: cold intolerance, heat intolerance, polydipsia, polyuria Hematologic/Lymphatic: ABSENT: easy bleeding, easy bruising Physical Exam Vital Signs: Temp Pulse Resp BP Pulse Ox 98.6 F 88 18 152/89 H 92 05/19/19 17:44 05/19/19 17:44 05/19/19 17:44 05/19/19 17:44 05/19/19 17:44 Intake & Output 05/18/19 05/19/19 05/20/19 06:59 06:59 06:59 Intake Total 50 Balance 50 Weight 88.2 kg General appearance: PRESENT: no acute distress Head exam: PRESENT: normocephalic Eye exam: PRESENT: EOMI Mouth exam: PRESENT: dry mucosa Neck exam: PRESENT: full ROM Respiratory exam: PRESENT: rhonchi Cardiovascular exam: PRESENT: RRR Pulses: PRESENT: normal carotid pulses, normal radial pulses, normal femoral pulses GI/Abdominal exam: PRESENT: soft - Nontender, no peritoneal signs no rigidity Rectal exam: PRESENT: deferred Extremities exam: PRESENT: other - Inner thighs examined. There is an abscess 2 cm right inner thigh just lateral to the labia; there is a much larger abscess left inner thigh just lateral to the left labia, with swelling and induration. Neurological exam: PRESENT: oriented to person, oriented to place, oriented to time, oriented to situation Psychiatric exam: PRESENT: appropriate affect Skin exam: PRESENT: intact Results Laboratory Results: 05/19/19 15:28 05/19/19 15:28 05/19/19 05/19/19 15:28 15:28 WBC 14.9 H RBC 4.99 Hgb 15.1 Hct 43.9 MCV 88 MCH 30.2 MCHC 34.3 RDW 13.6 Plt Count 310 Seg Neutrophils % 68.9 Sodium 135.1 L Potassium 4.3 Chloride 103 Carbon Dioxide 21 L Anion Gap 11 BUN 18 Creatinine 0.61 Est GFR ( Amer) > 60 Glucose 288 H Calcium 9.0 Total Bilirubin 0.5 AST 16 Alkaline Phosphatase 142 H Total Protein 7.8 Albumin 4.0 Assessment & Plan - Diagnosis (1) Abscess of deep perineal space Is this a current diagnosis for this admission?: Yes Plan: Impression: Bilateral inner thigh abscesses requiring operative drainage and diabetic, poorly controlled Recommendations: 1. Admit to surgical service, keep n.p.o., take to operating room for incision and drainage packing of bilateral abscesses, LMAC anesthesia Dr. Dominguez. 2. We will put her on a sliding scale insulin. 3. We will consult internal medicine for assistance with medical management. (2) Abuse of smoked substance Is this a current diagnosis for this admission?: Yes (3) Leukocytosis Qualifiers: Leukocytosis type: unspecified Qualified Code(s): D72.829 - Elevated white blood cell count, unspecified Is this a current diagnosis for this admission?: Yes (4) Poorly controlled diabetes mellitus Is this a current diagnosis for this admission?: Yes - Time Time Spent: 30 to 50 Minutes Smoking Cessation Education: 3 to 10 minutes
--- NOTE | 2019-05-19 18:49 | Operative Report ---
Operative Report DATE OF SURGERY: 05/19/19 PREOPERATIVE DIAGNOSIS: Bilateral upper inner thigh abscesses. Uncontrolled di abetes mellitus POSTOPERATIVE DIAGNOSIS: Same OPERATION: Operative excisional debridement of bilateral inner thigh abscesses left greater than right, irrigation and packing SURGEON: RENZO ZAMBRANO ANESTHESIA: LMAC TISSUE REMOVED OR ALTERED: Skin subcutaneous tissue and pus COMPLICATIONS: None ESTIMATED BLOOD LOSS: 40 cc INTRAOPERATIVE FINDINGS: See below PROCEDURE: Patient was taken to the main operating where LMAC anesthesia was induced. She is placed supine position, lithotomy leg spread perineum prepped and draped in sterile fashion. Surgical plan surgical timeout were conducted. Skin overlying the bilateral upper inner thigh abscesses anesthetized 1% plain lidocaine. Right thigh abscess excised in elliptical fashion including skin, subcutaneous tissue with #10 blade. The index finger of the surgeon, right hand, which used to probe the underlying interstices of the subcutaneous tissue breaking up loculations. Wound culture sent for Gram stain and sensitivity. Wound was debrided to the depth of 4 cm, and 2 cm wide. The identical procedure was performed on the left side, however this wound was approximately 4 x 4 cm at the skin level and 6 to 7 cm at the subcutaneous tissue level. Multiple loculations of the necrotic fat broken up and excised with #10 blade, and scissors. Culture sent for Gram stain, sensitivity. Wound irrigated with saline, Betadine and saline again. Both wounds packed with gauze packing. Wounds left open. 4 x 4's applied. Patient all procedure well, taken to recovery in stable condition. Plan: 1. Empiric antibiotic therapy 2. Consult internal medicine, assist with diabetic management.
[2019-05-19] MEDS ORDERED: ONDANSETRON HCL INJ/PF 4 MG/2 ML SDV IV PRN (18:51)
[2019-05-19] MEDS ORDERED: NORMAL SALINE 1000 ML 1,000 ML IV PRN (18:51)
[2019-05-19] MEDS ORDERED: GLUCAGON,HUMAN RECOMB 1 MG INJ IM PRN ×2 (18:52→18:57)
[2019-05-19] MEDS ORDERED: DEXTROSE 50%-WATER 25 GM/50 ML DISP.SYRIN IV PRN ×4 (18:52→18:57)
[2019-05-19] MEDS ORDERED: DEXTROSE 40% GEL 15 GM TUBE PO PRN ×4 (18:52→18:57)
[2019-05-19] MEDS: OXYCODONE-ACETAMINOPHEN 5-325 MG TABLET PO PRN (19:55)
[2019-05-19] MEDS ORDERED: INSULIN GLARGINE,HUM.REC.ANLOG 1,000 UNIT/10 ML VIAL (PYX) SUBCUT ONE (21:26)
[2019-05-19] MEDS ORDERED: INSULIN GLARGINE,HUM.REC.ANLOG 1,000 UNIT/10 ML VIAL SUBCUT SCH (22:00)
[2019-05-19] MEDS: ACETAMINOPHEN 1,000 MG/100 ML RTUPB IV SCH (22:02)
[2019-05-19] MEDS: CLINDAMYCIN 600 MG/D5W RTU 600 MG/50 ML RTUPB IV SCH (22:04)
[2019-05-20] MEDS ORDERED: ACETAMINOPHEN INJ/PF 1000 MG/100 ML SDV IV SCH
[2019-05-20] MEDS: INSULIN REG, HUMAN 100 UNIT/ML 3 ML VIAL (PYX) SUBCUT SCH ×5 (00:48→22:27)
[2019-05-20] MEDS: ACETAMINOPHEN 1,000 MG/100 ML RTUPB IV SCH ×2 (03:09→09:22)
[2019-05-20] MEDS ORDERED: HYDRALAZINE HCL INJ/PF 20 MG/1 ML SDV IV PRN (05:14)
[2019-05-20] MEDS ORDERED: NICOTINE 7 MG/24 HR PATCH.TD24 TD PRN (05:21)
--- NOTE | 2019-05-20 05:21 | PDOC CONSULTATION ---
Consultation Consult Date: 05/19/19 Attending physician:: RENZO ZAMBRANO Provider Consulted: SENG CHOUDHURY Consult reason:: Diabetes History of Present Illness Admission Date/PCP: 05/19/19 17:40 Patient complains of: Thigh abscess History of Present Illness: MARK ANTHONY MENEZES is a 54 year old female with a past medical history of hypertension, poorly controlled diabetes presenting with pain and swelling of the left inner thigh. In the emergency department she is found to have thigh abscess, leukocytosis and hyperglycemia. She is referred to the surgical list for admission. Patient admits dietary and lifestyle indiscretion in regards to her diabetic and hypertensive management. Past Medical History Cardiac Medical History: Reports: Hypertension Endocrine Medical History: Reports: Diabetes Mellitus Type 2 Psychiatric Medical History: Reports: Depression Past Surgical History Past Surgical History: Reports: None, Appendectomy, Section - x4, Other - reports a dermatologic excision of a cystic structure on back Social History Smoking Status: Current Every Day Smoker Cigarettes Packs Per Day: 10 Electronic Cigarette use?: No Number of Years Smokin Last Time Smoked: t Frequency of Alcohol Use: None Hx Recreational Drug Use: No - Advance Directive Resuscitation Status: Full Code Family History Family History: None Parental Family History Reviewed: No Children Family History Reviewed: No Sibling(s) Family History Reviewed.: No Medication/Allergy Home Medications: Sulfamethoxazole/Trimethoprim [Bactrim Ds Tablet] 1 tab PO BID #14 tablet 01/04/18 Clindamycin HCl 300 mg PO QID #40 capsule 05/24/18 Metformin HCl [Glucophage 500 mg Tablet] 500 mg PO BID #60 tablet 05/24/18 Tramadol HCl [Ultram] 50 mg PO Q4HP PRN #15 tablet 05/24/18 Allergies/Adverse Reactions: cephalexin [From Keflex] Allergy (Verified 05/19/19 14:49) Review of Systems Constitutional: ABSENT: chills, fever(s), headache(s), weight gain, weight loss Eyes: ABSENT: visual disturbances Ears: ABSENT: hearing changes Cardiovascular: ABSENT: chest pain, dyspnea on exertion, edema, orthropnea, palpitations Respiratory: ABSENT: cough, hemoptysis Gastrointestinal: ABSENT: abdominal pain, constipation, diarrhea, hematemesis, h ematochezia, nausea, vomiting Genitourinary: ABSENT: dysuria, hematuria Musculoskeletal: ABSENT: joint swelling Integumentary: ABSENT: rash, wounds Neurological: ABSENT: abnormal gait, abnormal speech, confusion, dizziness, focal weakness, syncope Psychiatric: ABSENT: anxiety, depression, homidical ideation, suicidal ideation Endocrine: ABSENT: cold intolerance, heat intolerance, polydipsia, polyuria Hematologic/Lymphatic: ABSENT: easy bleeding, easy bruising Physical Exam Vital Signs: Temp Pulse Resp BP Pulse Ox 98.0 F 77 18 142/63 H 96 05/20/19 03:15 05/20/19 03:15 05/20/19 03:15 05/20/19 03:15 05/20/19 03:15 Intake & Output 05/18/19 05/19/19 05/20/19 11:59 11:59 11:59 Intake Total 950 Output Total 100 Balance 850 Weight 88.2 kg General appearance: PRESENT: cooperative, mild distress, well-developed, well- nourished Head exam: PRESENT: atraumatic, normocephalic Eye exam: PRESENT: conjunctiva pink, EOMI, PERRLA. ABSENT: scleral icterus Ear exam: PRESENT: normal external ear exam Mouth exam: PRESENT: moist, tongue midline Neck exam: ABSENT: carotid bruit, JVD, lymphadenopathy, thyromegaly Respiratory exam: PRESENT: clear to auscultation tanna. ABSENT: rales, rhonchi, wheezes Cardiovascular exam: PRESENT: RRR. ABSENT: diastolic murmur, rubs, systolic murmur Pulses: PRESENT: normal dorsalis pedis pul Vascular exam: PRESENT: normal capillary refill GI/Abdominal exam: PRESENT: normal bowel sounds, soft. ABSENT: distended, guarding, mass, organolmegaly, rebound, tenderness Rectal exam: PRESENT: deferred Extremities exam: PRESENT: full ROM, tenderness, +1 edema. ABSENT: calf tenderness, clubbing, pedal edema Neurological exam: PRESENT: alert, awake, oriented to person, oriented to place, oriented to time, oriented to situation, CN II-XII grossly intact. ABSENT: motor sensory deficit Psychiatric exam: PRESENT: appropriate affect, normal mood. ABSENT: homicidal ideation, suicidal ideation Skin exam: PRESENT: dry, intact, warm. ABSENT: cyanosis, rash Results Laboratory Results: 05/19/19 15:28 05/19/19 15:28 05/19/19 05/19/19 15:28 15:28 WBC 14.9 H RBC 4.99 Hgb 15.1 Hct 43.9 MCV 88 MCH 30.2 MCHC 34.3 RDW 13.6 Plt Count 310 Seg Neutrophils % 68.9 Sodium 135.1 L Potassium 4.3 Chloride 103 Carbon Dioxide 21 L Anion Gap 11 BUN 18 Creatinine 0.61 Est GFR ( Amer) > 60 Glucose 288 H Calcium 9.0 Total Bilirubin 0.5 AST 16 Alkaline Phosphatase 142 H Total Protein 7.8 Albumin 4.0 Assessment and Plan - Diagnosis (1) Hypertension Is this a current diagnosis for this admission?: Yes Plan: Complicated by acute pain, hydralazine as needed (2) DVT prophylaxis Is this a current diagnosis for this admission?: Yes Plan: Heparin 5000 units subcu every 8 (3) Abscess of deep perineal space Is this a current diagnosis for this admission?: Yes Plan: Defer to surgery (4) Poorly controlled diabetes mellitus Is this a current diagnosis for this admission?: Yes Plan: Hold metformin, Lantus 5 units subcu nightly ordered and recommend Humalog sliding scale q. before meals - Time Time Spent with patient: 15-24 minutes
[2019-05-20] MEDS: CLINDAMYCIN 600 MG/D5W RTU 600 MG/50 ML RTUPB IV SCH (06:24)
[2019-05-20] MEDS: HEPARIN SOD (PORCINE) 5,000 UNIT/ML 1 ML VIAL SUBCUT SCH ×3 (06:24→22:27)
[2019-05-20] MEDS: OXYCODONE-ACETAMINOPHEN 5-325 MG TABLET PO PRN ×2 (06:47→22:28)
[2019-05-20] MEDS: DOCUSATE SODIUM 100 MG CAPSULE PO SCH ×2 (09:22→18:02)
--- NOTE | 2019-05-20 11:13 | PDOC PROGRESS REPORT ---
Subjective Progress Note for:: 05/20/19 Reason For Visit: BILATERAL INNER THIGH ABSCESSES,UNCONTROLLED Physical Exam Vital Signs: Temp Pulse Resp BP Pulse Ox 98.1 F 77 17 127/51 H 97 05/20/19 07:14 05/20/19 07:14 05/20/19 07:14 05/20/19 07:14 05/20/19 07:14 Intake & Output 05/19/19 05/20/19 05/21/19 06:59 06:59 06:59 Intake Total 950 50 Output Total 100 Balance 850 50 Weight 90.2 kg Results Laboratory Results: 05/19/19 15:28 05/19/19 15:28 05/19/19 05/19/19 15:28 15:28 WBC 14.9 H RBC 4.99 Hgb 15.1 Hct 43.9 MCV 88 MCH 30.2 MCHC 34.3 RDW 13.6 Plt Count 310 Seg Neutrophils % 68.9 Sodium 135.1 L Potassium 4.3 Chloride 103 Carbon Dioxide 21 L Anion Gap 11 BUN 18 Creatinine 0.61 Est GFR ( Amer) > 60 Glucose 288 H Calcium 9.0 Total Bilirubin 0.5 AST 16 Alkaline Phosphatase 142 H Total Protein 7.8 Albumin 4.0 Assessment & Plan - Diagnosis (1) Abscess of deep perineal space Is this a current diagnosis for this admission?: Yes - Plan Summary Plan Summary: 54-year-old female status post incision and drainage of upper thigh abscess x2. I have removed the packing today. The wounds appear clean, without purulent discharge. I have encouraged the patient to shower today with soap and water. Consult social media designer for dressing changes. Home once dressing changes and home health have been arranged.
[2019-05-20] MEDS: GLIPIZIDE 5 MG TABLET PO SCH ×2 (11:59→16:54)
[2019-05-20] MEDS: METFORMIN HCL 500 MG TABLET PO SCH ×2 (11:59→16:55)
--- NOTE | 2019-05-20 13:39 | PDOC PROGRESS REPORT ---
Subjective Progress Note for:: 05/20/19 Subjective:: Patient feels well today. On discussion with patient, patient has not been taking her metformin for a few weeks now. States that she is not on insulin. Reason For Visit: BILATERAL INNER THIGH ABSCESSES,UNCONTROLLED Physical Exam Vital Signs: Temp Pulse Resp BP Pulse Ox 98.1 F 74 17 120/51 L 94 05/20/19 10:54 05/20/19 10:54 05/20/19 10:54 05/20/19 10:54 05/20/19 10:54 Intake & Output 05/19/19 05/20/19 05/21/19 06:59 06:59 06:59 Intake Total 950 848 Output Total 100 Balance 850 848 Weight 90.2 kg General appearance: PRESENT: no acute distress, cooperative Neck exam: ABSENT: JVD Respiratory exam: PRESENT: clear to auscultation tanna, unlabored. ABSENT: tachypnea, wheezes Cardiovascular exam: PRESENT: RRR, +S1, +S2. ABSENT: tachycardia GI/Abdominal exam: PRESENT: soft. ABSENT: rebound, rigid, tenderness Neurological exam: PRESENT: alert, awake, oriented to person, oriented to place, oriented to time, oriented to situation Results Laboratory Results: 05/19/19 15:28 05/19/19 15:28 05/19/19 05/19/19 15:28 15:28 WBC 14.9 H RBC 4.99 Hgb 15.1 Hct 43.9 MCV 88 MCH 30.2 MCHC 34.3 RDW 13.6 Plt Count 310 Seg Neutrophils % 68.9 Sodium 135.1 L Potassium 4.3 Chloride 103 Carbon Dioxide 21 L Anion Gap 11 BUN 18 Creatinine 0.61 Est GFR ( Amer) > 60 Glucose 288 H Calcium 9.0 Total Bilirubin 0.5 AST 16 Alkaline Phosphatase 142 H Total Protein 7.8 Albumin 4.0 Assessment and Plan - Diagnosis (1) Poorly controlled diabetes mellitus Is this a current diagnosis for this admission?: Yes Plan: Patient's hemoglobin A1c is 11 indicating the patient does need to be on insulin. I have had conversation with patient about putting her on insulin but patient is adamant that she would like to try oral anti-glycemic medications first. I have explained the necessity of insulin to her but she insists on oral anti-glycemics due to finances and also administration of injection. As such, I will place patient on metformin 1000mg twice daily which patient was meant to be on but has not been taking and I will also add glipizide 5 mg twice a day. Sliding scale I have instructed patient to check her glucose at least twice a day and make a log and follow-up with her primary care provider. clinical unit educator consulted. (2) Hypertension Qualifiers: Hypertension type: essential hypertension Qualified Code(s): I10 - Essential (primary) hypertension Is this a current diagnosis for this admission?: Yes Plan: Patient states that she takes lisinopril 5 mg which I will restart. (3) DVT prophylaxis Is this a current diagnosis for this admission?: Yes Plan: Heparin 5000 units subcu every 8 - Time Time Spent with patient: Less than 15 minutes
[2019-05-20] MEDS: LISINOPRIL 5 MG TABLET PO SCH (16:54)
[2019-05-20] MEDS: SULFAMETHOXAZOLE/TRIMETHOPRIM 800-160 MG TABLET PO SCH (22:28)
[2019-05-21] MEDS: OXYCODONE-ACETAMINOPHEN 5-325 MG TABLET PO PRN (06:09)
[2019-05-21] MEDS: HEPARIN SOD (PORCINE) 5,000 UNIT/ML 1 ML VIAL SUBCUT SCH (06:10)
[2019-05-21] MEDS: GLIPIZIDE 5 MG TABLET PO SCH (08:10)
[2019-05-21] MEDS: METFORMIN HCL 500 MG TABLET PO SCH (08:10)
[2019-05-21] MEDS: INSULIN REG, HUMAN 100 UNIT/ML 3 ML VIAL (PYX) SUBCUT SCH ×2 (08:10→11:56)
--- NOTE | 2019-05-21 08:48 | PDOC DISCHARGE SUMMARY ---
General - Admit/Disc Date/PCP Admission Date/Primary Care Provider: 05/19/19 17:40 Discharge Date: 05/21/19 - Discharge Diagnosis Final Diagnosis: bilateral inner thigh abscess - Assessment Summary: Presents emergency department with several history of inner thigh abscesses left greater than right, pain, swelling but no drainage. She has a history of abscess drainage in [place] many years ago. She was seen in the emergency department where she is found to have bilateral inner thigh abscesses left greater than right, leukocytosis. Surgery was consulted, examined in the e mergency department, and felt to require operative drainage. she was taken to or for incision and drainage post op had a routine post op course wet to dry dressing. by post op day 3 pt stable for dc home with bid dressing changes. she willf/u in surgery clinicin 1 wk. - Additional Information Resuscitation Status: Full Code Discharge Diet: As Tolerated Discharge Activity: Activity As Tolerated, Other - shower at least twice a day with hand held shower to both inner thighs. Home Medications: Lisinopril [Prinivil 5 mg Tablet] 5 mg PO DAILY 05/20/19 Metformin HCl [Glucophage] 1,000 mg PO BID 05/20/19 History of Present Illiness History of Present Illness: MARK ANTHONY MENEZES is a 54 year old female Physical Exam Vital Signs: Temp Pulse Resp BP Pulse Ox 99.4 F 88 18 139/58 H 99 05/21/19 02:00 05/21/19 02:00 05/21/19 02:00 05/21/19 02:00 05/21/19 02:00 Intake & Output 05/20/19 05/21/19 05/22/19 06:59 06:59 06:59 Intake Total 950 1324 Output Total 100 Balance 850 1324 Weight 90.2 kg 91 kg Results Laboratory Results: WBC 14.9 10^3/uL (4.0-10.5) H 05/19/19 15:28 RBC 4.99 10^6/uL (3.72-5.28) 05/19/19 15:28 Hgb 15.1 g/dL (12.0-15.5) 05/19/19 15:28 Hct 43.9 % (36.0-47.0) 05/19/19 15:28 MCV 88 fl (80-97) 05/19/19 15:28 MCH 30.2 pg (27.0-33.4) 05/19/19 15: MCHC 34.3 g/dL (32.0-36.0) 05/19/19 15: RDW 13.6 % (11.5-14.0) 05/19/19 15:28 Plt Count 310 10^3/uL (150-450) 05/19/19 15: Lymph % (Auto) 21.7 % (13-45) 05/19/19 15:28 Stewart % (Auto) 6.5 % (3-13) 05/19/19 15: Eos % (Auto) 1.7 % (0-6) 05/19/19: Baso % (Auto) 1.2 % (0-2) 05/19/19 15: Absolute Neuts (auto) 10.3 10^3/uL (1.7-8.2) H 05/19/19 15: Absolute Lymphs (auto) 3.2 10^3/uL (0.5-4.7) 05/19/19 15:28 Absolute Monos (auto) 1.0 10^3/uL (0.1-1.4) 05/19/19: Absolute Eos (auto) 0.3 10^3/uL (0.0-0.6) 05/19/19 15: Absolute Basos (auto) 0.2 10^3/uL (0.0-0.2) 05/19/19 15: Seg Neutrophils % 68.9 % (42-78) 05/19/19 15: Sodium 135.1 mmol/L (137-145) L 05/19/19 15:28 Potassium 4.3 mmol/L (3.6-5.0) 05/19/19 15: Chloride 103 mmol/L (98-107) 05/19/19 15: Carbon Dioxide 21 mmol/L (22-30) L 05/19/19 15:28 Anion Gap 11 (5-19) 05/19/19 15:28 BUN 18 mg/dL (7-20) 05/19/19 15:28 Creatinine 0.61 mg/dL (0.52-1.25) 05/19/19 15:28 Est GFR ( Amer) > 60 (>60) 05/19/19 15:28 Est GFR (MDRD) Non-Af > 60 (>60) 05/19/19 15:28 Glucose 288 mg/dL (75-110) H 05/19/19 15:28 POC Glucose 204 mg/dL (70-110) H 05/21/19 05:51 Hemoglobin A1c % 11.1 % (4.7-6.0) H 05/19/19 15:28 Calcium 9.0 mg/dL (8.4-10.2) 05/19/19 15:28 Total Bilirubin 0.5 mg/dL (0.2-1.3) 05/19/19 15:28 Direct Bilirubin 0.3 mg/dL (0.0-0.4) 05/19/19 15:28 Neonat Total Bilirubin Not Reportable 05/19/19 15:28 Neonat Direct Bilirubin Not Reportable 05/19/19 15:28 Neonat Indirect Bili Not Reportable 05/19/19 15:28 AST 16 U/L (14-36) 05/19/19 15:28 ALT 15 U/L (<35) 05/19/19 15:28 Alkaline Phosphatase 142 U/L (38-126) H 05/19/19 15:28 Total Protein 7.8 g/dL (6.3-8.2) 05/19/19 15:28 Albumin 4.0 g/dL (3.5-5.0) 05/19/19 15:28
[2019-05-21] MEDS: DOCUSATE SODIUM 100 MG CAPSULE PO SCH (09:29)
[2019-05-21] MEDS: LISINOPRIL 5 MG TABLET PO SCH (09:29)
[2019-05-21] MEDS: SULFAMETHOXAZOLE/TRIMETHOPRIM 800-160 MG TABLET PO SCH (09:30)
--- NOTE | 2019-05-21 11:26 | PDOC PROGRESS REPORT ---
Subjective Progress Note for:: 05/21/19 Subjective:: Patient denies any nausea or vomiting today. Discussed patient's plan for diabetes. Reason For Visit: BILATERAL INNER THIGH ABSCESSES,UNCONTROLLED Physical Exam Vital Signs: Temp Pulse Resp BP Pulse Ox 98.5 F 71 16 148/65 H 95 05/21/19 10:29 05/21/19 10:29 05/21/19 10:29 05/21/19 10:29 05/21/19 10:29 Intake & Output 05/20/19 05/21/19 05/22/19 06:59 06:59 06:59 Intake Total 950 1324 Output Total 100 Balance 850 1324 Weight 90.2 kg 91 kg General appearance: PRESENT: no acute distress, cooperative Neck exam: ABSENT: JVD Respiratory exam: PRESENT: unlabored GI/Abdominal exam: ABSENT: distended Musculoskeletal exam: PRESENT: ambulatory Neurological exam: PRESENT: alert, awake Psychiatric exam: ABSENT: agitated, anxious Results Laboratory Results: 05/19/19 15:28 05/19/19 15:28 05/19/19 18:25 Perineum Gram Stain - Final Assessment and Plan - Diagnosis (1) Poorly controlled diabetes mellitus Is this a current diagnosis for this admission?: Yes Plan: Patient's hemoglobin A1c is 11 indicating the patient does need to be on insulin. I have had conversation with patient about putting her on insulin but patient is adamant that she would like to try oral anti-glycemic medications first. I have explained the necessity of insulin to her but she insists on oral anti-glycemics due to finances and also administration of injection. As such, I will place patient on metformin 1000mg twice daily which patient was meant to be on but has not been taking and I will also add glipizide 5 mg twice a day. Sliding scale I have instructed patient to check her glucose at least twice a day and make a log and follow-up with her primary care provider. peer educator consulted. 05/21/2019-recommend discharging patient on metformin 1000 mg twice daily and glipizide 5 mg twice daily. Patient will need follow-up with her primary care provider for further titration of her medications. Have informed patient that she would benefit more from insulin regimen for better control of her blood sugars but she has opted to forego insulin use for now. (2) Hypertension Qualifiers: Hypertension type: essential hypertension Qualified Code(s): I10 - Essential (primary) hypertension Is this a current diagnosis for this admission?: Yes Plan: Continue home regimen of lisinopril 5 mg daily upon discharge. (3) DVT prophylaxis Is this a current diagnosis for this admission?: Yes - Time Time Spent with patient: Less than 15 minutes
[2019-05-21 13:26] VITALS: BP 114/44
== END 2019-05-21 13:55 | disposition home or self-care (01) | DRG 572 ==
LOC: ER 14:43 → EH 17:40 → 4N 19:32
PROVIDERS: ADMIT Surgery; ATTEND Surgery
PROC: 0JBL0ZZ Excision of Right Upper Leg Subcutaneous Tissue and Fascia, Open Approach (ICD-10-PCS; 2019-05-19)
PROC: 0JBM0ZZ Excision of Left Upper Leg Subcutaneous Tissue and Fascia, Open Approach (ICD-10-PCS; principal; 2019-05-19 18:30)
DX: L02.416 Cutaneous abscess of left lower limb (principal); L02.415 Cutaneous abscess of right lower limb; I10 Essential (primary) hypertension; E11.9 Type 2 diabetes mellitus without complications; F17.210 Nicotine dependence, cigarettes, uncomplicated; T38.3X6A Underdosing of insulin and oral hypoglycemic [antidiabetic] drugs, initial encounter; E66.9 Obesity, unspecified; Z79.84 Long term (current) use of oral hypoglycemic drugs; Z88.1 Allergy status to other antibiotic agents; Z90.49 Acquired absence of other specified parts of digestive tract
CPT/HCPCS: 36415; 80053; 82962; 83036; 85025; 87040; 87070; 87075; 87077; 87186; 87205; 902; 96365; 96366; 99284; J0131; J1644; J1815; J2250; J2405; J3010; J3490

== ENCOUNTER → 2019-06-27 | Outpatient (CLI) | payer OTHER ==
--- NOTE | 2019-06-27 09:08 | ER [facility] ASSESSMENT REPORT ---
Intake - In the Last 14 days Have you traveled outside [place]?: No Have you been in close contact with someone CONFIRMED: No Worked in Healthcare?: No - Symptoms Subjective Fever([place] feverish): No Chills: No Muscule Aches: No Runny Nose: No Sore Throat: No Cough (New or worsening chronic cough): Yes Shortness of breath: No Nausea or Vomiting: No Headache: No Abdominal Pain: No Diarrhea(3 or more loose stools in last 24 hours): No - Do you have any of the following Chronic lung disease: Asthma or emphysema or COPD: No Cystic Fibrosis: No Diabetes: Yes High Blood Pressure: Yes Cardiovascular Disease: Yes Chronic Kidney Disease: No Chronic Liver Disease: No Chronic blood disorder like Sickle Cell Disease: No Weak immune system due to disease or medication: No Neurologic condition that limits movement: No Developmental delay - Moderate to Severe: No Recent (within past 2 weeks) or current : No Morbid Obesity (>100 pounds over ideal weight): Yes - Objective Temperature: 97.4 F Pulse Rate: 82 Respiratory Rate: 18 Blood Pressure: 138/63 O2 Sat by Pulse Oximetry: 95 Objective: Given above, testing performed: If Testing Performed: Test Specimen Type Sent to General - General Information source: Patient Notes: Patient presents to the [facility] for screening for the coronavirus. Patient states she is had a cough for the past 6 weeks. Patient states that she is a chronic smoker although denies any history of COPD. - HPI Onset/Duration: Persistent Pain Level: Denies Associated symptoms: Nonproductive cough. denies: Chest pain, Fever, Nausea, Vomiting Exacerbated by: Denies Similar symptoms previously: No Recently seen / treated by doctor: No - Related Data Allergies/Adverse Reactions: cephalexin [From Keflex] Allergy (Verified 05/19/19 14:49) Past Medical History - General Information source: Patient - Social History Smoking Status: Current Every Day Smoker Lives with: Family Family History: None - Past Medical History Cardiac Medical History: Reports: Hx Hypertension Endocrine Medical History: Reports: Hx Diabetes Mellitus Type 2 Renal/ Medical History: Denies: Hx Peritoneal Dialysis Psychiatric Medical History: Reports: Hx Depression Past Surgical History: Reports: Hx Appendectomy, Hx Section - x4, Other - reports a dermatologic excision of a cystic structure on back Physical Exam - Notes Notes: Full physical exam could not be performed due to covid 19 isolation protocols. Constitutional: Nontoxic appearance, no acute distress Eyes: Nonicteric, extraocular movements intact, sclera clear Cardiovascular: Heart rate and rhythm regular Respiratory: Breath sounds clear bilaterally, nonlabored breathing, no use of accessory muscles, no tachypnea Muculoskeletal: Moves all extremities well Skin: Normal color Neuro: Awake alert oriented, normal speech Psych: Normal mood and affect Diagnostic Results Laboratory Results: The patient was evaluated during the global Covid 19 pandemic, and that diagnosis was suspected/considered upon their initial presentation. Their evaluation, treatment and testing was consistent with current guidelines for patients who present with complaints or symptoms that may be related to Covid 19. Patient presents with upper respiratory symptoms worrisome for possible Covid 19. Patient does not have emergency worrying symptoms such as difficulty breathing, shortness of breath, chest pain, pressure, confusion or cyanosis. Patient appears suitable for discharge as vital signs are stable and patient is nontoxic in appearance. Good return precautions have been discussed with patient, patient verbalized understanding and is agreeable with discharge plan of care at this time. Patient Education/Counseling Counseling/Education: Patient was provided with discharge information including: As a person under investigation for Covid 19, the [place] department of Health and Human Services, division of public health advises you to adhere to the following guidance until your test results are reported to you. If your test result is positive, you will receive additional information from your provider and your local health department at that time. Remain at home until you are cleared by the health provider or public health authorities. Keep a log of visitors to your home, notify any visitors to your home of your isolation status. If you plan to move to a new address or leave the county, notify the local health department in your County. Call your doctor or seek care if you have an urgent medical need. Before seeking medical care, call ahead to get instructions from the provider before arriving at the medical office clinic or hospital. Notify them that you are tuan ng tested for the virus that causes Covid 19 so that arrangements can be made, as necessary, to prevent transmission to others in the healthcare setting. Next, notify the local health department in your county. If a medical emergency arises and you need to call 911, inform the first responders that you are being tested for the virus that causes Covid 19. Next, notify the local health department in your county. RD Discharge - Discharge Clinical Impression: Cough, covid 19 screening Condition: Stable Disposition: Home; Selfcare
[2019-06-27 09:51] VITALS: BP 138/63
[2019-06-27 10:57] LABS: A TYPE INFLUENZA AG NEGATIVE (NEGATIVE); B INFLUENZA AG NEGATIVE (NEGATIVE)
== END ==
LOC: RDC 09:04
PROVIDERS: ATTEND Nurse Practitioner Family
DX: Z20.828 Contact with and (suspected) exposure to other viral communicable diseases (principal); R05 Cough; E11.9 Type 2 diabetes mellitus without complications; I10 Essential (primary) hypertension; E66.01 Morbid (severe) obesity due to excess calories; F17.200 Nicotine dependence, unspecified, uncomplicated; Z88.1 Allergy status to other antibiotic agents; Z79.899 Other long term (current) drug therapy
CPT/HCPCS: 87070; 87635; 87804; 87880; 99211

== ENCOUNTER 2019-08-12 19:05 | Emergency (ER) | payer OTHER ==
[2019-08-12 19:11] VITALS: BP 169/75
[2019-08-12] MEDS ORDERED: ASPIRIN 81 MG TABLET, CHEWABLE PO ONE (19:39)
--- NOTE | 2019-08-12 19:41 | ER Document Report ---
ED Medical Screen (RME) - General Chief Complaint: Chest Pain Stated Complaint: CHEST PAIN, HEART PALPATATION, LEFT ARM NUMBNESS Time Seen by Provider: 08/12/19 19:36 Primary Care Provider: [facility] [Primary Care Provider] - Follow up as needed Mode of Arrival: Ambulatory Information source: Patient Notes: HPI; 54-year-old female presents emergency room complaining of fluttering to her heart for the past week. With some intermittent chest pain. States it got worse tonight and now is radiating into her left arm. Denies any nausea or vomiting. No medications for symptoms. No trauma or injury. States her brother with a recent open heart surgery. PE: Alert and oriented x3. Mild distress noted. Lungs: Clear to auscultation without rales rhonchi wheezes. Heart irregular rate and rhythm without murmurs rubs or gallops. I have greeted and performed a rapid initial assessment of this patient. A comprehensive ED assessment and evaluation of the patient, analysis of test results and completion of the medical decision making process will be conducted by additional ED providers. I have specifically instructed the patient or family members with the patient to immediately return to any nursing staff should anything change in the patient's condition or with their chief complaint. TRAVEL OUTSIDE OF THE [place] IN LAST 30 DAYS: No - Related Data Allergies/Adverse Reactions: cephalexin [From Keflex] Allergy (Verified 08/12/19 19:34) Past Medical History - Past Medical History Cardiac Medical History: Reports: Hx Hypertension Endocrine Medical History: Reports: Hx Diabetes Mellitus Type 2 Renal/ Medical History: Denies: Hx Peritoneal Dialysis Psychiatric Medical History: Reports: Hx Depression Past Surgical History: Reports: Hx Appendectomy, Hx Section - x4, Other - reports a dermatologic excision of a cystic structure on back Physical Exam - Vital signs Vitals: Temp Pulse Resp BP Pulse Ox 98.6 F 80 18 169/75 H 97 08/12/19 19:08/12/19 19:08/12/19 19:08/12/19 19:08/12/19 19:09 Course - Vital Signs Vital signs: Temp Pulse Resp BP Pulse Ox 98.6 F 80 18 169/75 H 97 08/12/19 19:09 08/12/19 19:09 08/12/19 19:09 08/12/19 19:09 08/12/19 19:09 Doctor's Discharge - Discharge Referrals: [facility] [Primary Care Provider] - Follow up as needed
[2019-08-12 20:48] LABS: ABSOLUTE BASOPHILS # (AUTO) 0.2 10^3/uL (0.0-0.2); ABSOLUTE EOSINOPHILS # (AUTO) 0.2 10^3/uL (0.0-0.6); ABSOLUTE LYMPHOCYTES (AUTO) 3.8 10^3/uL (0.5-4.7); ABSOLUTE MONOCYTES (AUTO) 0.7 10^3/uL (0.1-1.4); ABSOLUTE NEUT (AUTO) 6.9 10^3/uL (1.7-8.2); BASOPHILS % (AUTO) 1.3 % (0-2); EOSINOPHILS % (AUTO) 1.8 % (0-6); HEMATOCRIT 44.5 % (36.0-47.0); HEMOGLOBIN 14.9 g/dL (12.0-15.5); LYMPHOCYTES % (AUTO) 32.2 % (13-45); MEAN CORPUSCULAR HEMOGLOBIN 30.4 pg (27.0-33.4); MEAN CORPUSCULAR HGB CONC 33.6 g/dL (32.0-36.0); MEAN CORPUSCULAR VOLUME 91 fl (80-97); MONOCYTES % (AUTO) 6.1 % (3-13); PLATELET COUNT 331 10^3/uL (150-450); RED BLOOD COUNT 4.91 10^6/uL (3.72-5.28); RED CELL DISTRIBUTION WIDTH 13.9 % (11.5-14.0); SEGMENTED NEUTROPHILS % (AUTO) 58.6 % (42-78); TOTAL CELLS COUNTED % (AUTO) 100 %; WHITE BLOOD COUNT 11.8 10^3/uL (4.0-10.5)
[2019-08-12 21:11] LABS: ALBUMIN 4.3 g/dL (3.5-5.0); ALKALINE PHOSPHATASE 139 U/L (38-126); ANION GAP 8 (5-19); ASPARTATE AMINO TRANSFERASE 19 U/L (14-36); BILIRUBIN,TOTAL 0.3 mg/dL (0.2-1.3); BLOOD UREA NITROGEN 28 mg/dL (7-20); CALCIUM 9.6 mg/dL (8.4-10.2); CARBON DIOXIDE 25 mmol/L (22-30); CHLORIDE 101 mmol/L (98-107); CREATINE KINASE 42 U/L (30-135); GLUCOSE 301 mg/dL (75-110); POTASSIUM 4.4 mmol/L (3.6-5.0); TOTAL PROTEIN 7.9 g/dL (6.3-8.2)
--- NOTE | 2019-08-12 21:20 | RADIOLOGY REPORT (SQ) ---
XR CHEST 2 VIEWS HISTORY: Chest pain. COMPARISON: None. FINDINGS: The heart size is enlarged with mild central pulmonary vascular congestion. No consolidation, pleural effusion, or pneumothorax is seen. The bony structures are preserved. IMPRESSION: Mild pulmonary edema pattern, without pleural effusions or focal consolidation.
[2019-08-12 21:22] LABS: CREATINE KINASE MB < 0.22 ng/mL (<4.55); TROPONIN I < 0.012 ng/mL
--- NOTE | 2019-08-13 00:28 | EKG REPORT ---
SEVERITY:- BORDERLINE ECG - SINUS RHYTHM ABERRANT COMPLEX, POSSIBLY SUPRAVENTRICULAR BORDERLINE PROLONGED QT INTERVAL : Confirmed by: Odalis Mcpherson 13-Aug-2019 00:26:59
== END 2019-08-13 03:02 | disposition left against medical advice (07) ==
LOC: ER 19:05
DX: Z53.20 Procedure and treatment not carried out because of patient's decision for unspecified reasons (principal); R07.9 Chest pain, unspecified; R00.2 Palpitations; R20.0 Anesthesia of skin; M79.602 Pain in left arm; Z88.1 Allergy status to other antibiotic agents
CPT/HCPCS: 36415; 71046; 80053; 82550; 82553; 84484; 85025; 93005; 93010; 99281